=== PATIENT | female | born 1995 | race Hispanic/Latino ===

== ENCOUNTER 2024-10-16 12:20 | Emergency (ER) | payer BC ==
[~2024-10-16] VITALS: Ht 165.1 cm; Wt 45.4 kg
[2024-10-16 12:46] VITALS: PULSE 87; RESP 16; TEMP 98.1; O2SAT 100
[2024-10-16] MEDS ORDERED: LIDOCAINE HCL 1% LOCAL INJ 20 ML VIAL INJ ONE (13:00)
[2024-10-16] MEDS: TETANUS/DIPHTHERIA TOX ADULT 0.5 ML SYR IM ONE (13:39)
[2024-10-16] MEDS ORDERED: AMOX TR-K CLV1 EAC2 PO (15:29)
[2024-10-16] MEDS: NEOMYCIN/POLYMYX/BACITR OINT 0.9 GM PKT TOP ONE (15:40)
== END 2024-10-16 15:58 | disposition home or self-care (01) ==
LOC: ER 12:50
DX: S61.452A Open bite of left hand, initial encounter (principal); S61.451A Open bite of right hand, initial encounter; W54.0XXA Bitten by dog, initial encounter; Y92.89 Other specified places as the place of occurrence of the external cause
CPT/HCPCS: 12001; 73130; 90471; 90714; 99283; J2003